=== PATIENT | male | born 1990 | race Caucasian/White ===

== ENCOUNTER 2022-04-22 15:50 | Emergency (ER) | payer SELFPAY ==
[~2022-04-22] VITALS: Ht 180.3 cm; Wt 77.1 kg
[2022-04-22 17:01] VITALS: BP 139/74
[2022-04-22] MEDS ORDERED: IBUPROFEN 400 MG TABLET PO ONE (17:30)
[2022-04-22] MEDS ORDERED: IBUPROFEN 400 MG TABLET ONE (17:37)
[2022-04-22] MEDS ORDERED: CYCL5TAB PO (18:43)
[2022-04-22] MEDS ORDERED: IBUP-1957 PO (18:43)
--- NOTE | 2022-04-22 19:21 | NUR ---
Patient discharged to home in stable condition. Written and verbal after care instructions given. Patient verbalizes understanding of instruction.
== END 2022-04-22 20:12 | disposition home or self-care (01) ==
LOC: ER 15:51
DX: M54.50 Low back pain, unspecified (principal); Z60.2 Problems related to living alone; Z79.899 Other long term (current) drug therapy
CPT/HCPCS: 72110-TC

== ENCOUNTER 2023-01-21 16:53 | Emergency (ER) | payer SELFPAY ==
[~2023-01-21] VITALS: Ht 180.3 cm; Wt 79.4 kg
[~2023-01-21 16:53] MED LIST: CYCL5TAB PO; IBUP-1957 PO
[2023-01-21 17:41] VITALS: BP 128/76
[2023-01-21] MEDS ORDERED: IBUPROFEN 600 MG TABLET PO ONE (19:00)
[2023-01-21] MEDS ORDERED: IBUP-1955 PO (19:34)
[2023-01-21] MEDS ORDERED: IBUPROFEN 600 MG TABLET ONE (19:40)
--- NOTE | 2023-01-21 19:45 | NUR ---
Patient discharged to home in stable condition. RX Written and verbal after care instructions given. Patient verbalizes understanding of instruction.
== END 2023-01-21 19:46 | disposition home or self-care (01) ==
LOC: ER 16:58
DX: S49.92XA Unspecified injury of left shoulder and upper arm, initial encounter (principal); Z60.2 Problems related to living alone; Z79.899 Other long term (current) drug therapy; Y08.89XA Assault by other specified means, initial encounter; Y93.89 Activity, other specified; Y92.89 Other specified places as the place of occurrence of the external cause; Y99.8 Other external cause status
CPT/HCPCS: 73030-TC; 73060-TC